=== PATIENT | female | born 1980 | race Caucasian/White ===

== ENCOUNTER 2019-09-01 21:04 | Emergency (ER) | payer OTHER, SELFPAY ==
[2019-09-01 21:08] VITALS: BP 126/65; PULSE 88; RESP 19; TEMP 36.8; O2SAT 100
[2019-09-02 00:25] LABS: Basophils Percent Auto 0.2 % (0.2-1.2); Eosinophils Absolute Auto 0.6 K/mm3 (0-0.3); Hematocrit 43.4 % (37.0-47.0); Hemoglobin 14.5 g/dL (12.0-15.0); Immature Granulocyte Absolute 0.06 K/mm3 (0.00-0.031); Immature Granulocyte Percent A 0.4 % (0-0.5); Lymphocytes Absolute Auto 2.74 K/mm3 (0.9-3.2); Lymphocytes Percent Auto 18.1 % (18.3-44.2); Mean Corpuscular HGB Conc 33.4 g/dl (32-36); Mean Corpuscular Volume 95.8 fl (80-100); Mean Platelet Volume 9.1 fl (7.4-10.4); Monocytes Absolute Auto 0.6 K/mm3 (0.1-0.6); Monocytes Percent Auto 4.1 % (2.6-8.5); Neutrophils Absolute Auto 11.1 K/mm3 (1.3-6.7); Neutrophils Percent Auto 73.2 % (45.5-73.1); Platelet Count Result 392 k/mm3 (150-375); Red Blood Count 4.53 M/mm3 (4.2-5.4); Red Cell Distribution Width 12.3 % (11.5-14.5); White Blood Count 15.2 K/mm3 (4.5-10.0)
[2019-09-02] MEDS: SODIUM CHLORIDE 0.9% IV 1,000 ML 999 ML IV CONT (00:28)
[2019-09-02 00:44] VITALS: BP 116/75; PULSE 79; RESP 18; TEMP 37; O2SAT 100
[2019-09-02 00:57] LABS: Blood Urea Nitrogen 18 mg/dL (7-17); Calcium 9.4 mg/dL (8.4-10.2); Carbon Dioxide 30 mmol/L (22-30); Chloride 99 mmol/L (98-107); Estimated CRCL calculation 78 ml/min; Estimated Glomerular Filt Rate > 60; Glucose 108 mg/dL (65-105); Potassium 3.9 mmol/L (3.4-5.0); Sodium 135 mmol/L (137-145)
--- NOTE | 2019-09-02 01:04 | ED.SKABFB ---
HPI - Skin/Abscess/Foreign Bdy General Chief complaint: Skin/Abscess/Foreign Body Stated complaint: poison bola Time Seen by Provider: 09/01/19 23:32 History of Present Illness HPI narrative: Patient is a 39-year-old female who presents ER with rash ongoing for couple weeks. She was seen by her PCP and started on prednisone for possible poison bola exposure. 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 No known exposure. No linear streaking or vesicles/blisters. She reports she has had brief improvement with the steroids but symptoms worsen. She felt slightly flushed and dizzy so she came to the ER today. She plans on calling her PCP tomorrow for follow-up. No overt fevers or chills or sweats. Her skin is very warm but she attributes that to being outside in the heat. Patient reports her symptoms started over the middle part of her back and has since spread out to her legs and arms as well as her trunk. Endorses pruritus but no overt pain of the skin. Related Data Allergies Allergy/AdvReac Type Severity Reaction Status Date / Time No Known Allergies Allergy Verified 11/03/17 11:59 Review of Systems Review of Systems: All systems reviewed & are unremarkable except as noted in HPI and below Constitutional: Constitutional: Denies chills, Denies fever(s) and Denies weakness ENT: Denies nasal congestion and Denies sore throat Integumentary/Breasts: Skin/Breast: Reports dry skin, Reports erythema, Reports rash and Denies skin ulcer PMFSH Past Medical History Medical History (Updated 09/02/19 @ 01:48 by Abraham Noel MD) Depression Surgical History Surgical History (Updated 09/02/19 @ 01:07 by Abraham Noel MD) No pertinent past surgical history Social History Social History (Updated 09/02/19 @ 01:07 by Abraham Noel MD) Smoking status: Never smoker Gender identity (if verbalized by the patient): Female Exam Narrative: Exam Narrative: GENERAL: Well-appearing, well-nourished, and in no acute distress. HEAD: Normocephalic, atraumatic. ENT: Mucous membranes moist. EXTREMITIES: Normal range of motion. No edema. SKIN: Warm, dry. Erythematous rash diffusely over the thighs, the entirety of the back and upper extremities. No vesicles or pustules. There is some dried sloughing skin down near the right gluteal area. No excoriations noted. NEURO: No focal deficits. Alert and oriented x3. PSYCH: Normal mood and affect. Course Course Emergency Course: Follow-up with her PCP. Will restart steroids. Vital Signs Vital signs: Vital Signs Temperature 98.3 F 09/01/19 21:08 Pulse Rate 88 09/01/19 21:08 Respiratory Rate 19 09/01/19 21:08 Blood Pressure 126/65 09/01/19 21:08 Pulse Oximetry 100 09/01/19 21:08 Temperature 98.6 F 09/02/19 00:44 Pulse Rate 79 09/02/19 00:44 Respiratory Rate 18 09/02/19 00:44 Blood Pressure 116/75 09/02/19 00:44 Pulse Oximetry 100 09/02/19 00:44 MDM - Skin/Abscess/Foreign Bdy Lab Data Result diagrams: 09/02/19 00:17 09/02/19 00:17 Labs: Lab Results 09/02/19 09/02/19 Range/Units 00:17 00:17 WBC 15.2 H (4.5-10.0) K/mm3 RBC 4.53 (4.2-5.4) M/mm3 Hgb 14.5 (12.0-15.0) g/dL Hct 43.4 (37.0-47.0) % MCV 95.8 (80-100) fl MCH 32.0 (26-34) pg MCHC 33.4 (32-36) g/dl RDW 12.3 (11.5-14.5) % Plt Count 392 H (150-375) k/mm3 MPV 9.1 (7.4-10.4) fl Immature Gran % (Auto) 0.4 (0-0.5) % Neut % (Auto) 73.2 H (45.5-73.1) % Lymph % (Auto) 18.1 L (18.3-44.2) % [place] % (Auto) 4.1 (2.6-8.5) % Eos % (Auto) 4.0 (0-4.4) % Baso % (Auto) 0.2 (0.2-1.2) % Lymph # (Auto) 2.74 (0.9-3.2) K/mm3 [place] # (Auto) 0.6 (0.1-0.6) K/mm3 Eos # (Auto) 0.6 H (0-0.3) K/mm3 Baso # (Auto) 0.0 (0.0-0.1) K/mm3 Abs Immat Gran (auto) 0.06 H (0.00-0.031) K/mm3 Absolute Neuts (auto) 11.1 H (1.3-6.7) K/mm3 Absolute Nucleated RBC 0.0 (0.0-0.012) K/mm3 Nucleated R
[2019-09-02 01:57] VITALS: BP 115/84; PULSE 74; RESP 14; TEMP 36.3; O2SAT 100
== END 2019-09-02 01:58 | disposition home or self-care (01) ==
PROVIDERS: Emergency Provider Emergency Medicine; PCP Family Medicine Adolescent Medicine
DX: R21 Rash and other nonspecific skin eruption (principal)
CPT/HCPCS: 36415; 80048; 85025; 96360; 99283; J7030

== ENCOUNTER 2022-05-02 11:36 | Emergency (ER) | payer BC, SELFPAY ==
--- NOTE | ~2022-05-02 | XR_ITS ---
XR foot RT 2V 05/02/2022 12:37 INDICATION: Right foot pain PROCEDURE: 2 views right foot COMPARISON: No prior studies for comparison. FINDINGS: Fracture, dislocation or subluxation is not identified. The soft tissues appear within norm al limits. No foreign bodies are identified. IMPRESSION: 1: NO ACUTE BONE OR JOINT ABNORMALITY IDENTIFIED. Reviewed, dictated and finalized at location B. S APPRENTICE
[2022-05-02 11:53] VITALS: BP 125/71; PULSE 70; RESP 16; TEMP 37; O2SAT 99
--- NOTE | 2022-05-02 12:15 | ED.GENADULT ---
HPI - General Adult General Chief complaint: Extremity Injury, Lower Stated complaint: Right Foot Pain Time Seen by Provider: 05/02/22 12:15 Source: patient, RN notes reviewed and old records reviewed Mode of arrival: ambulatory Limitations: no limitations History of Present Illness HPI narrative: 42-year-old female presents to the [facility] concerns of a piece of glass to the plantar aspect right foot. States that it occurred Thursday, 4 days ago. Has been trying to dig it out herself. Has peeled off or cut off most to the callus that is across the plantar aspect distal portion of the foot. Redness and inflammation noted. On visual no piece of glass noted. Onset (ago): day(s) (4) Related Data Home Medications Medication Instructions Recorded Confirmed norethindrone (contraceptive) 0.35 mg 05/02/22 mg tablet (Jencycla) Allergies Allergy/AdvReac Type Severity Reaction Status Date / Time Penicillins AdvReac Unknown Vomiting Verified 05/02/22 11:53 Review of Systems Review of Systems: All systems reviewed & are unremarkable except as noted in HPI and below Constitutional: Constitutional: Reports no additional constitutional complaints Eyes: Eyes: Reports no additional eye complaints ENT: Reports system reviewed and no additional complaints, except as documented Cardiovascular: Cardiovascular: Reports no additional cardiovascular complaints, Denies chest pain and Denies dyspnea Respiratory: Respiratory: Reports no additional respiratory complaints, Denies chest congestion, Denies cough and Denies dyspnea Gastrointestinal: Gastrointestinal: Reports no additional gastrointestinal complaints, Denies abdominal pain, Denies nausea and Denies vomiting Musculoskeletal: Musculoskeletal: Reports as per HPI Integumentary/Breasts: Skin/Breast: Reports as per HPI Neurologic: Reports system reviewed and no additional complaints, except as documented Psychiatric: Psychiatric: Reports no additional psychiatric complaints Allergic/Immunologic: Allergic/Immunologic: Reports no additional allergic/immunologic complaints PMFSH Past Medical History Medical History Depression Surgical History Surgical History History of laparoscopy pelvic Family History Family History Father Depression Heart disease Hypertension Other Acute myocardial infarction Breast cancer Grandparent Cerebrovascular accident Depression Diabetes mellitus Social History Social History Smoking status: Former smoker Second hand tobacco smoke exposure: Yes Smoking end date: 01/07/21 Alcohol intake: current Alcohol use details: Socially Substance use: never Substance use type: does not use Living arrangements: alone Occupation/Education: occupation Gender identity (if verbalized by the patient): Female Sexual Orientation (if Verbalized by the Patient): Straight or Heterosexual Spiritual care concerns: No Agree to blood products: Yes Comments At the time of my signature, I reviewed and agree with the nursing past medical, surgical, social, and family history. There is no relevant family history pertinent to the patient complaint. Exam Const: General: cooperative, healthy appearing, comfortable, no acute distress, well developed, alert and well nourished Nutritional Appearance: well nourished Orientation/consciousness: patient oriented x3 Limitations: no limitations HENMT: Head: normal to inspection Ears: hearing grossly normal bilaterally and external ears normal Face/Nose/Sinus: Normal external nose present, Normal nares present, Normal nasal mucous membranes and turbinates present and normal facial exam Face and sinus: normal facial exam Mouth: Yes Normal oral and palatal mucosa
[2022-05-02] MEDS: TETANUS,DIPHTHERIA,AC PERTUSSIS ADULT (0.5 ML) BOOSTRIX IM (12:49)
== END 2022-05-02 13:10 | disposition home or self-care (01) ==
PROVIDERS: Emergency Provider Nurse Practitioner; PCP Family Medicine Adolescent Medicine
DX: S91.301A Unspecified open wound, right foot, initial encounter (principal); Z23 Encounter for immunization; Z87.891 Personal history of nicotine dependence
CPT/HCPCS: 73620; 90471; 90715; 99213; G0463

== ENCOUNTER 2023-05-01 08:43 | Day surgery (SDC) | payer BC, SELFPAY ==
[2023-04-10 11:51] VITALS: BMI 38.4
--- NOTE | 2023-04-29 08:43 | SUR.PREOP ---
Patient called regarding upcoming procedure. Voicemail left regarding appointment times.
--- NOTE | 2023-04-30 21:04 | PM.HPGS ---
History of Present Illness History of Present Illness Consent: Risks, benefits, and alternatives have been discussed and questions answered. Patient agrees to proceed with procedure. Chief complaint: Noninfective gastroenteritis and colitis Narrative: Nancy Moeller is a 43 year old female ?referred for evaluation of chronic diarrhea for the past 2 months with associated nausea and increased gas. Patient reports anywhere from 2-3 episodes of watery explosive diarrhea with urgency,? accidents and nighttime awakening.? she does report 1 episode of blood in her stool. Se had ad a prvious colonoscopy 3 yrs ago in [place], [place]. Review of Systems Review of Systems: All systems reviewed & are unremarkable except as noted in HPI and below PMFSH Past Medical History Medical History Depression Surgical History Surgical History History of laparoscopy pelvic Family History Family History Father Depression Heart disease Hypertension Other Acute myocardial infarction Breast cancer Carcinoma of colon, Onset Age: 70 Aunt Grandparent Cerebrovascular accident Depression Diabetes mellitus Social History Social History Smoking status: Never smoker Second hand tobacco smoke exposure: Yes Smoking end date: 01/07/21 Alcohol intake: current Alcohol use details: Socially Substance use: never Substance use type: does not use Lack of Transportation: No Lack of Food: Never True Current Housing: I Have Housing Concerned About Future Housing: No Difficulty Paying Gas/Electric Bills: No Difficulty Paying for Meds: No Currently Unemployed: No Education: Bachelor's Degree Difficulty w/ Childcare or Family Care: No Living arrangements: with family Occupation/Education: occupation Gender identity (if verbalized by the patient): Female Sexual Orientation (if Verbalized by the Patient): Straight or Heterosexual Spiritual care concerns: No Agree to blood products: Yes Meds Home Medications and Allergies Home Medications Medication Instructions Recorded Confirmed Type norethindrone (contraceptive) 0.35 0.35 mg PO DAILY 05/02/22 04/10/23 History mg tablet (Jencycla) aripiprazole 15 mg tablet 15 mg PO DAILY 04/10/23 04/10/23 History fluoxetine 40 mg capsule 40 mg PO DAILY 04/10/23 05/01/23 History Allergies Allergy/AdvReac Type Severity Reaction Status Date / Time No Known Allergies Allergy Verified 05/01/23 10:07 Exam Const: General: alert Orientation/consciousness: patient oriented x3 Resp: Auscultation: clear to auscultation bilaterally Cardio: Rhythm: regular rhythm GI: GI Palp: Yes Soft to palpation and No Tenderness to palpation present (GI) Neuro: General: patient oriented x3 Assessment and Plan Assessment and plan (1) Chronic diarrhea: Code(s): K52.9 - Noninfective gastroenteritis and colitis, unspecified Status: Acute Assessment and Plan: Colonoscopy with possible biopsy or polypectomy or cautery or injection of substances.
[2023-05-01 10:09] VITALS: BP 130/70; PULSE 65; RESP 16; TEMP 36.6; O2SAT 100
[2023-05-01] MEDS: LACTATED RINGERS 1,000 ML 150 ML IV CONT (10:18)
--- NOTE | 2023-05-01 10:53 | WPDANESEPPF ---
Anes - Initial Pre Proc Eval Procedure: Operation Date: 05/01/23 11:30 Proposed Procedures p Colonoscopy - Harish Liao MD Date/Time: 05/01/23 10:53 Surgeon: Harish Liao MD Pre Op Diagnosis: Noninfective gastroenteritis and colitis Patient Data Age: 43 Gender: F Height: 1.68 m Weight: 107.2 kg Last Vital Signs Temp 97.8 F 05/01/23 10:09 Pulse 65 05/01/23 10:09 Resp 16 05/01/23 10:09 BP 130/70 05/01/23 10:09 Pulse Ox 100 05/01/23 10:09 O2 Del Method Room Air 05/01/23 10:09 Allergies Allergy/AdvReac Type Severity Reaction Status Date / Time No Known Allergies Allergy Verified 05/01/23 10:07 Home Medications Medication Instructions Recorded Confirmed Type norethindrone (contraceptive) 0.35 0.35 mg PO DAILY 05/02/22 04/10/23 History mg tablet (Jencycla) aripiprazole 15 mg tablet 15 mg PO DAILY 04/10/23 04/10/23 History fluoxetine 40 mg capsule 40 mg PO DAILY 04/10/23 05/01/23 History Patient hx anesthesia problems: none Family hx anesthesia problems: none Results Review: All pre-operative results and documents have been reviewed as part of the pre-operative evaluation. [facility] Past Medical History Medical History Depression Surgical History Surgical History History of laparoscopy pelvic Family History Family History Father Depression Heart disease Hypertension Other Acute myocardial infarction Breast cancer Carcinoma of colon, Onset Age: 70 Aunt Grandparent Cerebrovascular accident Depression Diabetes mellitus Social History Social History Smoking status: Never smoker Second hand tobacco smoke exposure: Yes Smoking end date: 01/07/21 Alcohol intake: current Alcohol use details: Socially Substance use: never Substance use type: does not use Lack of Transportation: No Lack of Food: Never True Current Housing: I Have Housing Concerned About Future Housing: No Difficulty Paying Gas/Electric Bills: No Difficulty Paying for Meds: No Currently Unemployed: No Education: Bachelor's Degree Difficulty w/ Childcare or Family Care: No Living arrangements: with family Occupation/Education: occupation Gender identity (if verbalized by the patient): Female Sexual Orientation (if Verbalized by the Patient): Straight or Heterosexual Spiritual care concerns: No Agree to blood products: Yes Anes - Eval Final PreProcedure Day of Procedure 05/01/23 10:53 Patient weight: morbidly obese Heart: regular rate and rhythm Lungs: clear to auscultation Airway: Mallampati scale class II Neurological: alert and oriented Last oral intake: >/= 8 hours ASA classification: III Emergent: no Anesthetic plan: proceed Anesthesia type and monitoring: general GIVS and standard monitoring Results Review: All pre-operative results and documents have been reviewed as part of the pre-operative evaluation. Informed Consent: The patient's anesthetic plan and its attendant risks and benefits were discussed with the patient/family/POA. Questions were solicited and answers provided to the satisfaction of the patient/family/POA.
[2023-05-01 11:48] VITALS: BP 104/48; PULSE 68; RESP 16; O2SAT 96
[2023-05-01 11:58] VITALS: BP 103/59; PULSE 60; RESP 18; O2SAT 100
[2023-05-01 12:08] VITALS: BP 102/60; PULSE 58; RESP 18; O2SAT 100
== END 2023-05-01 12:14 | disposition home or self-care (01) ==
PROVIDERS: PCP Family Medicine Adolescent Medicine; Visit Provider Internal Medicine Gastroenterology
PROC: 0DJD8ZZ Inspection of Lower Intestinal Tract, Via Natural or Artificial Opening Endoscopic (ICD-10-PCS; CPT 45378; principal; 2023-05-01 11:30)
DX: R19.7 Diarrhea, unspecified (principal); F32.A Depression, unspecified
CPT/HCPCS: 45378; J2001; J2704; J7120

== ENCOUNTER 2024-01-06 13:18 | Emergency (ER) | payer OTHER, BC, SELFPAY ==
--- NOTE | ~2024-01-06 | XR_ITS ---
EXAMINATION: XR finger 4th LT min 2V DATE: 01/06/2024 13:36 INDICATION: Left hand fourth digit pain. TECHNIQUE: 3 views of left hand fourth digit were obtained. COMPARISON: None. FINDINGS: There is a nondisplaced stellate fracture of tuft of fourth distal phalanx. Joint spaces ar e normal. IMPRESSION: 1. Nondisplaced stellate fracture of tuft of fourth distal phalanx. Reviewed, dictated and finalized at location B.
--- NOTE | 2024-01-06 13:22 | ED_ITS ---
HPI - Extremity Injury (Upper) General Chief Complaint: Extremity Injury, Upper Stated Complaint: Left Hand Injury Time Seen by Provider: 01/06/24 13:35 Source: patient, RN notes reviewed and old records reviewed Mode of arrival: ambulatory Limitations: no limitations History of Present Illness HPI narrative: 43-year-old female presents to the [facility] with complaints of left 4th finger pain distal aspect, dorsal. States that she closed a door on her finger, tenderness to the nail bed. Bruising and swelling noted. Abrasion to the nail bed. Unknown last tetanus Related Data Home Medications Medication Instructions Recorded Confirmed aripiprazole 15 mg tablet 15 mg PO DAILY 04/10/23 01/06/24 fluoxetine 40 mg capsule 40 mg PO DAILY 04/10/23 01/06/24 Allergies Allergy/AdvReac Type Severity Reaction Status Date / Time No Known Allergies Allergy Verified 01/06/24 13:21 Review of Systems Review of Systems: All systems reviewed & are unremarkable except as noted in HPI and below Constitutional: Constitutional: Reports no additional constitutional complaints ENT: Reports system reviewed and no additional complaints, except as documented Cardiovascular: Cardiovascular: Reports no additional cardiovascular complaints, Denies chest pain and Denies dyspnea Respiratory: Respiratory: Reports no additional respiratory complaints, Denies chest congestion, Denies cough and Denies dyspnea Gastrointestinal: Gastrointestinal: Reports no additional gastrointestinal complaints, Denies abdominal pain, Denies nausea and Denies vomiting Musculoskeletal: Musculoskeletal: Reports as per HPI Integumentary/Breasts: Skin/Breast: Reports system reviewed and no additional complaints, except as docu PMFSH Past Medical History Medical History Depression Surgical History Surgical History History of laparoscopy pelvic Family History Family History Father Depression Heart disease Hypertension Other Acute myocardial infarction Breast cancer Carcinoma of colon, Onset Age: 70 Aunt Grandparent Cerebrovascular accident Depression Diabetes mellitus Social History Social History Smoking status: Never smoker Second hand tobacco smoke exposure: Yes Smoking end date: 01/07/21 Alcohol intake: current Alcohol use details: Socially Substance use: never Substance use type: does not use Lack of Transportation: No Lack of Food: Never True Current Housing: I Have Housing Concerned About Future Housing: No Difficulty Paying Gas/Electric Bills: No Difficulty Paying for Meds: No Currently Unemployed: No Education: Bachelor's Degree Difficulty w/ Childcare or Family Care: No Living arrangements: with family Occupation/Education: occupation Gender identity (if verbalized by the patient): Female Sexual Orientation (if Verbalized by the Patient): Straight or Heterosexual Spiritual care concerns: No Agree to blood products: Yes Comments At the time of my signature, I reviewed and agree with the nursing past medical, surgical, social, and family history. There is no relevant family history pertinent to the patient complaint. Exam Const: General: cooperative, healthy appearing, comfortable, no acute distress, well developed, alert and well nourished Nutritional Appearance: well nourished Orientation/consciousness: patient oriented x3 Limitations: no limitations HENMT: Head: normal to inspection Ears: hearing grossly normal bilaterally and external ears normal Face/Nose/Sinus: Normal external nose present, normal facial exam and face symmetric Face and sinus: normal facial exam and face symmetric Eyes: General: appearance normal, both eyes and all related structures Alignment and Position: alignment normal Periorbital: periorbital findings normal Neck: Neck: normal visual inspection, full ROM, no lymphadenopathy and no meningeal signs Chest: Chest palpation & inspection: normal inspection of the chest Resp: Effort & Inspection: normal respiratory effort and able to speak in complete sentences Cardio: Rate: regular rate Skin: General skin exam: normal color and no rashes or lesions noted Lesions: no lesions Rashes: no rashes Other: 4th finger nail bed Neuro: General: patient oriented x3, gait normal, tone normal, moves all extremities and no meningeal signs Cognition (Neuro): normal cognition Speech: normal speech Gait exam (Neuro): Normal gait present Extrem: General: normal to inspection, full ROM, capillary refill normal and normal gait Right upper extremity: Extremity exam: right hand normal capillary refill, tenderness of the 4th digit at the distal phalanx, swelling of the 4th digit at the distal phalanx and abrasion of the 4th digit at the distal phalanx and at the nailbed Psych: Appearance: grossly normal and well kempt Mental Status: mental status grossly normal Speech and movement: Normal speech and movement present and Clear speech present Affect: normal affect Attitude: cooperative Course Course Level of Care: Express Care Visit Vital Signs Vital signs: Vital Signs Temperature 99 F 01/06/24 13:34 Pulse Rate 82 01/06/24 13:34 Respiratory Rate 20 01/06/24 13:34 Blood Pressure 113/74 01/06/24 13:34 Pulse Oximetry 99 01/06/24 13:34 Oxygen Delivery Room Air 01/06/24 13:34 Temperature 99 F 01/06/24 13:34 Pulse Rate 82 01/06/24 13:34 Respiratory Rate 20 01/06/24 13:34 Blood Pressure 113/74 01/06/24 13:34 Pulse Oximetry 99 01/06/24 13:34 Oxygen Delivery Room Air 01/06/24 13:34 Reviewed MDM - Extremity Injury (Upper) MDM Narrative Medical decision making narrative: Patient sitting in exam room. Nontoxic, vitals stable. Patient presents to trauma to the 4th finger. X-ray showed toe fracture, abrasion, to the nail bed, this is considered an open wound. Updated tetanus, started on antibiotics, referred to stevo Huang Patient appropriate for outpatient treatment and follow-up Discharge instructions reviewed with patient, as well as provided in writing per nursing staff. The instructions also include specific and strict return/GO TO THE ER as well as f/u information. All questions have been answered, and the patient deny any further questions with discharge and discharge plan. Some parts of this dictation were generated by voice recognition software and may contain typographical and/or grammatical inaccuracies. Differential Diagnosis Differential diagnosis: Likely finger sprain and other (Finger contusion, laceration, fracture) Imaging Data Radiologist's impression: EXAMINATION: XR finger 4th LT min 2V DATE: 01/06/2024 13:36 INDICATION: Left hand fourth digit pain. TECHNIQUE: 3 views of left hand fourth digit were obtained. COMPARISON: None. FINDINGS: There is a nondisplaced stellate fracture of tuft of fourth distal phalanx. Joint spaces are normal. IMPRESSION: 1. Nondisplaced stellate fracture of tuft of fourth distal phalanx. Critical Care Time Critical Care Time Critical Care Time: No Discharge Plan Discharge Clinical Impression: Open fracture of tuft of distal phalanx of finger, Vaccine for [id number], combined Patient Disposition: Home, Self-Care Condition: Stable Instructions: Finger Fracture (ED) Additional Instructions: Rest, ice and elevate every 2-3 hours for 15-20 minutes while awake Take Tylenol alternating with Motrin as needed for pain Wash area twice daily, pat dry, applied nonadhesive dressing, wear splint Follow-up with the hand specialists, Dr. Shah this week Take antibiotic as prescribed Follow-up with primary care provider For new or worsening symptoms go directly to the ER Patient Language: [place] Prescriptions: New amoxicillin-pot clavulanate 875-125 mg tablet 1 tablet PO Q12H Qty: 20 0RF No Action triamcinolone acetonide 0.1 % cream 1 applic topical BID Qty: 453.6 0RF fluoxetine 40 mg capsule 40 mg PO DAILY aripiprazole 15 mg tablet 15 mg PO DAILY Follow-up/Referrals: Washington Shah MD [Physician] - 2 Days (Distal tuft fracture with nail bed involvement) Jacinto Sanon MD [Primary Care Provider] - 3 Days (express care follow up) Stand Alone Forms: Work/School Release IP Time of Disposition: 13:50
[2024-01-06 13:34] VITALS: BP 113/74; PULSE 82; RESP 20; TEMP 37.2; O2SAT 99
[2024-01-06] MEDS: ACETAMINOPHEN 500 MG TABLET 1000 MG PO (13:48)
[2024-01-06] MEDS: TETANUS,DIPHTHERIA,AC PERTUSSIS ADULT (0.5 ML) BOOSTRIX IM (13:49)
== END 2024-01-06 14:06 | disposition home or self-care (01) ==
PROVIDERS: Emergency Provider Nurse Practitioner; PCP Family Medicine Adolescent Medicine
DX: S62.665A Nondisplaced fracture of distal phalanx of left ring finger, initial encounter for closed fracture (principal); X58.XXXA Exposure to other specified factors, initial encounter; Z23 Encounter for immunization; F32.A Depression, unspecified
CPT/HCPCS: 29130; 73140; 90471; 90715; 99214; A9270; G0463